=== PATIENT | female | born 1955 | race African-American/Black ===

== ENCOUNTER 2017-03-24 07:02 | Day surgery (SDC) | payer MEDICARE, MEDICAID ==
[~2017-03-24] VITALS: Ht 157.5 cm; Wt 45.4 kg
[~2017-03-24 07:02] MED LIST: ACET-3161 PO; ALBU6.7H2 IH; ATEN50TA PO; BACL-141 PO; DIPH25CA83; FLUT1DIS3 IH; HYDR12.54 PO; IBUP1TAB PO; LEVO500T15 PO; MONT10TA21 PO; OMEP20CA10 PO; TIOT18CA3 IH; TRAM50TA PO
[2017-03-24] MEDS ORDERED: LACTATED RINGERS 1,000 ML IV SCH (08:00)
[2017-03-24] MEDS ORDERED: BUPIVACAINE/EPINEPH/PF 0.25%/0.0005 10ML ONE (08:47)
[2017-03-24] MEDS ORDERED: BACITRACIN ZINC 15GM TUBE TOP ONE (08:47)
[2017-03-24] MEDS ORDERED: LOPE2TAB PO (11:01)
[2017-03-24] MEDS ORDERED: PRED5TAB48 PO (11:01)
[2017-03-24] MEDS ORDERED: THEO200T37 PO (11:01)
[2017-03-24] MEDS ORDERED: ONDA4TAB5 PO (11:03)
[2017-03-24 16:44] VITALS: BP 103/66
[2017-03-24] MEDS ORDERED: HYDROCODONE/ACETAMINOPHEN 5/325MG TABLET PO PRN (16:45)
== END 2017-03-24 17:35 | disposition home or self-care (01) ==
LOC: OR 07:02
PROVIDERS: ATTEND Surgery
DX: K64.8 Other hemorrhoids (principal); J44.9 Chronic obstructive pulmonary disease, unspecified; G43.909 Migraine, unspecified, not intractable, without status migrainosus; K21.9 Gastro-esophageal reflux disease without esophagitis; I10 Essential (primary) hypertension; Z87.891 Personal history of nicotine dependence
CPT/HCPCS: 46260; 71010; 88304; J0171; J7120